=== PATIENT | male | born 1995 ===

== ENCOUNTER 2018-03-26 19:31 | Emergency (ER) | payer OTHER ==
[~2018-03-26] VITALS: Ht 172.7 cm; Wt 72.6 kg
[2018-03-26 20:18] VITALS: BP 136/72
== END 2018-03-26 20:45 | disposition home or self-care (01) ==
LOC: ER 19:32
DX: S16.1XXA Strain of muscle, fascia and tendon at neck level, initial encounter (principal); F17.200 Nicotine dependence, unspecified, uncomplicated; V43.52XA Car driver injured in collision with other type car in traffic accident, initial encounter; Y93.89 Activity, other specified; Y92.89 Other specified places as the place of occurrence of the external cause; Y99.8 Other external cause status

== ENCOUNTER 2018-03-31 02:10 | Emergency (ER) | payer OTHER ==
[~2018-03-31] VITALS: Ht 172.7 cm; Wt 72.6 kg
[2018-03-31 02:32] VITALS: BP 149/88
== END 2018-03-31 03:19 | disposition home or self-care (01) ==
LOC: ER 02:15
DX: M79.10 Myalgia, unspecified site (principal)
CPT/HCPCS: 99281; A4606; Z7610; Z7502